=== PATIENT | male | born 1955 | race Caucasian/White ===

== ENCOUNTER 2024-05-03 08:27 | Outpatient (CLI) | payer BC, SELFPAY ==
[2024-05-03 09:13] LABS: Thyroid Stimulating Hormone 0.85 uIU/mL (0.27-4.20)
[2024-05-03 11:09] LABS: Follicle Stimulating Hormone 7.8 mIU/mL (1.5-12.4); Luteinizing Hormone 6.8 mIU/mL (1.7-8.6)
== END 2024-05-03 08:28 | disposition home or self-care (01) ==
PROVIDERS: Visit Provider Internal Medicine
DX: E03.8 Other specified hypothyroidism (principal); E06.3 Autoimmune thyroiditis; T68.XXXA Hypothermia, initial encounter
CPT/HCPCS: 36415; 83001; 83002; 84403; 84439; 84443; G0103